=== PATIENT | male | born 1950 | race Caucasian/White ===

== ENCOUNTER 2017-06-07 10:24 | Inpatient (IN) | payer BC, MEDICARE, SELFPAY ==
[2017-06-07] VITALS (14 sets, daily range): BP systolic 149–211; BP diastolic 60–117; PULSE 69–96; RESP 16–20; TEMP 36.6–36.8; O2SAT 93–100; BMI 48.8; BMI 45.4
--- NOTE | 2017-06-07 11:08 | ED.DCSUM_ITS ---
- ER Visit Summary Date of Service: 06/07/17 Chief Complaint: Elevated potassium History of Present Illness: The patient is a 66 M with an abnormal blood test. He had routine blood testing and had a potassium of 6.5. He has no symptoms or complaints. He was here to recheck that test. He does have a history of chronic kidney disease and diabetes. Physical Examination: Afebrile and vital signs unremarkable. Nontoxic and in no acute distress. Heart regular. Lungs clear. Abdomen soft. Skin appears normal. Test Results: BMP pending. Emergency Department Course and Treatment: BMP showed a potassium of 6.0. BUN was 39 and creatinine was 3.42. The patient said that the 3.42 is near his baseline. White count normal. Urinalysis unremarkable except for protein and glucose. EKG showed sinus rhythm at a rate of 77. May be some mild peaked T waves, but nothing significant. Patient was treated with calcium, insulin, and dextrose. He remained stable. I contacted the hospitalist for further evaluation. Treatment Plan: As above Disposition: Admission Impression: 1. Hyperkalemia 2. Chronic kidney disease This note was generated with [employer]ation software. It may contain incorrect words, spelling, and punctuation that were not noted in review of the chart prior to signing ED Disposition - Plan for ED Patient: Chief Complaint: Abn Labs Referrals: [facility] Doctor,Out of [NON-STAFF] -
[2017-06-07 11:49] LABS: Anion Gap 4 (5-15); BUN 39 mg/dL (7-18); BUN/Creat Ratio 11.4 RATIO (10-20); Calcium,Total 8.5 mg/dL (8.5-10.1); Chloride 109 mmol/L (98-107); Creatinine, Serum 3.42 mg/dL (0.70-1.30); EST Glomerular Filtration Rate 19 mL/min (>60); Est Glom Filt Rate - Afr Amer 23 mL/min (>60); Estimated Creatinine Clearance 23.01 ml/min; Glucose 166 mg/dL (74-106); Sodium Level 140 mmol/L (136-145)
--- NOTE | 2017-06-07 11:56 | EKG12_ITS ---
Test Reason : ABNORMAL LABS Blood Pressure : / mmHG Vent. Rate : 077 BPM Atrial Rate : 077 BPM P-R Int : 206 ms QRS Dur : 090 ms QT Int : 368 ms P-R-T Axes : 064 034 014 degrees QTc Int : 416 ms Sinus rhythm with Premature atrial complexes Otherwise normal ECG Confirmed by FRANCO FELICIANO, ISI ([id number]), editorial specialist LATANYA LEE ([id number] on 06/08/2017 2:32:58 PM Referred By: DC Confirmed By:ISI GAMEZ MD
[2017-06-07] MEDS: 0.9% Normal Saline 1,000 ML 1000 ML IV (12:18)
[2017-06-07 12:22] LABS: Absolute Lymphocyte Count 1.49 X10^3/ul (0.83-4.51); Absolute Neutrophil Count 4.7 X10^3/uL (2.0-7.7); Basophil# 0.04 X10^3/uL; Basophil% 0.6 % (0-1); Eosinophil# 0.28 X10^3/uL; Hematocrit 43.1 % (40-54); Hemoglobin 14.2 g/dl (13.0-16.5); Lymphocyte # 1.49 X10^3/ul (4.0); Lymphocyte % 21.4 % (19-41); Mean Corp Hgb Conc 32.9 g/gl (32-36); Mean Corpuscular Hgb 28.9 pg (27.0-32.0); Mean Corpuscular Volume 87.8 fL (80-94); Monocyte# 0.44 X10^3/uL; Monocyte% 6.3 % (0-10); Neutrophil # 4.69 X10^3/uL (2.7-7.7); Neutrophil % 67.6 % (47-70); POSITIVE COUNT NO; POSITIVE DIFFERENTIAL NO; POSITIVE MORPHOLOGY NO; Platelet Count 208 K/mm3 (150-450); RBC Distribution Width CV 14.3 % (11.6-14.6); Red Blood Count 4.91 M/mm3 (4.6-6.2)
[2017-06-07 12:27] LABS: Bacteria 0 SEEN /hpf (None Seen); Mucous, Urine 0 SEEN /hpf (<or=2+); Red Blood Cells-Urine 0 SEEN /hpf (0-5); Squamous Epithelial Cells - UA 0 SEEN /hpf (0-5); White Blood Cells 0 SEEN /hpf (0-5)
[2017-06-07] MEDS: Dextrose 50%-Water 25 GM/50 ML DISP.SYRIN IV (12:41)
[2017-06-07] MEDS: Calcium Gluconate 1 GM/10 ML Vial IV (12:41)
[2017-06-07 12:42] LABS: Color, Urine Yellow (Yellow); Glucose, Dipstick 100 mg/dl (Normal); Ketone-Dipstick Negative (Negative); Leukocyte Esterase-Dipstick Negative /ul (Negative); Nitrite-Dipstick Negative (Negative); Occult Blood-Urine 10 /ul (Negative); Protein-Dipstick 500 mg/dl (Negative); Urine Bilirubin Dipstick Negative (Negative); Urine Clarity Clear (Clear); Urine Urobilinogen Normal (Normal)
--- NOTE | 2017-06-07 13:36 | PCM.HP.STD ---
Problem List (1) HTN (hypertension) Status: Chronic Qualifiers: Hypertension type: essential hypertension Qualified Code(s): I10 - Essential (primary) hypertension (2) Morbid obesity Status: Chronic (3) Diabetes mellitus, type II Status: Chronic Qualifiers: Diabetes mellitus care home insulin use: with marine oil terminal superintendent use Diabetes mellitus complication status: with unspecified complications Qualified Code(s): E11.8 - Type 2 diabetes mellitus with unspecified complications; Z79.4 - termite control representative (current) use of insulin (4) CKD (chronic kidney disease) Status: Chronic Qualifiers: Chronic kidney disease stage: unspecified stage Qualified Code(s): N18.9 - Chronic kidney disease, unspecified (5) Hyperkalemia Status: Acute History of Present Illness Date of Admission: 06/07/17 Chief Complaint: Abnormal Lab The patient is a 66 y/o M w/ PMHx: Morbid Obesity, CKD Unclear stage, Hypertension, Diabetes mellitus type II who presents to the [facility] ED on 06/07/17 per his pet resort concierge recommendation as routine BMP w/ noted K 6.5. He notes having had recent renal bx as his renal function has been increasing over the last 6 months- 1 year. He follows w/ [facility] [employer] in [place] where he lives, Dr. Mcdonnell. In the ED work-up included AF, HR 60-70, BP 160/91-->197/93, RR 18, 100% on RA, CBC unremarkable, BMP w/ K 6.0, Chl 109, BUN/Cr 39/3.42, glucose 166, UA w/ protein, glucose otherwise not marked appearing, EKG with mild peaked T-waves. In the ED patient administered Ca gluconate, Dextrose 25 mg IV x 1, insulin 5 u IV x 1, NS 1L. Past Medical History Past Medical History (Chronic Problems): Chronic Problems HTN (hypertension) (Chronic) Morbid obesity (Chronic) Diabetes mellitus, type II (Chronic) CKD (chronic kidney disease) (Chronic) Allergies Penicillins Allergy (Verified 06/07/17 10:28) Angioedema Tetanus Vaccines and Toxoid Allergy (Verified 06/07/17 10:28) Unknown Home Medications: Ambulatory Orders Medication Instructions Recorded Amlodipine [Norvasc] 10 mg PO DAILY 06/07/17 Chlorthalidone 25 mg PO DAILY 06/07/17 Insulin Degludec [Tresiba 66 unit SQ DAILY 06/07/17 Flextouch U-100] Propranolol HCl [Inderal (Beta 20 mg PO BID 06/07/17 Fatimah)] Valsartan [Diovan] 320 mg PO DAILY 06/07/17 hydrALAZINE [Apresoline] 10 mg PO BID 06/07/17 Surgical History: no surgical history Psychiatric History: No pertinent psych hx Lives: Spouse/ Significant Other Smoking Status: Former smoker - Patient notes quitting approximately 30 years prior. Tobacco Use: Non-smoker Alcohol: Rare Drugs: None - *Family History Maternal History Items: Diabetes, Hypertension Paternal History Items: Hypertension Review of Systems Constitutional: Denies: Chills, Fever, Weight Change HEENT: Denies: Head Aches, Sinus Congestion, Sinus Drainage Cardiovascular: Denies: Chest Pain, Palpitations Respiratory: Denies: Cough, Shortness of breath at rest, Sputum production Gastrointestinal: Denies: Abdominal Pain, Nausea, Vomiting Genitourinary: Denies: Dysuria Musculoskeletal: Denies: Joint Pain, Joint Tenderness Skin: Denies: Rash, Wounds Neurological: Denies: Numbness, Tingling, Focal weakness Psychiatric: Denies: Anxiety, Depression, Homicidal Ideations, Suicidal Ideations Hematologic/ Lymphatic: Denies: Easy Bruising, Easy Bleeding VTE Information - Inpt Only VTE Present on Admission: No VTE Mechan Device Prophylaxis: SCD's VTE Pharm Prophylaxis ordered?: Yes Patient Problems: Active and Suspected Problems Hyperkalemia (Acute) Subjective: Seated upright in the ED bed, NAD. Objective: Physical Examination: General: awake, alert, oriented x 3 and cooperative, seated upright in the ED bed in no apparent distress. Skin: normal color, turgor, no icterus, cyanosis except BL LE chronic venous stasis skin changes. HEENT: AT/NC, EOMI, PERRLA, MMM, no carotid bruits or JVD noted. Lungs: CTA bilaterally, moderate effort, mild decrease BL bases, no rales, ronchi or wheezing. Heart: Regular rate and rhythm; no gallop, rub audible. Abdomen: soft, morbidly obese, NTTP, ND, normal BS, no HSM; however, habitus makes examination difficult. Extremities: no cyanosis, clubbing, BL LE chronic venous stasis, 2-3+ pedal to distal browning edema. Neurological: patient awake, alert, oriented x 3; cognitive function intact; pupils equally reactive to light and accomodation; cranial nerves II-XII grossly normal, moving all 4 extremities, no focal deficits, strength mildly to moderately globally decreased secondary to habitus. Psychiatric: affect appears normal, no acute evidence of depressive or anxiety feelings. - Physical Exam Vital Signs Temp Pulse Resp BP Pulse Ox 97.9 F 77 17 197/93 H 99 06/07/17 10:25 06/07/17 13:02 06/07/17 13:02 06/07/17 13:02 06/07/17 13:02 Oxygen Delivery Method Room Air Weight: 360 lb Body Mass Index (BMI) 48.8 Laboratory Tests Past 24 Hrs 06/07/17 06/07/17 06/07/17 11:20 11:20 12:10 WBC 7.0 RBC 4.91 Hgb 14.2 Hct 43.1 MCV 87.8 MCH 28.9 MCHC 32.9 RDW 14.3 RDW Differential 46.0 H Plt Count 208 MPV 12.0 Immature Gran % (Auto) 0.100 Neut % (Auto) 67.6 Lymph % (Auto) 21.4 [place] % (Auto) 6.3 Eos % (Auto) 4.0 Baso % (Auto) 0.6 Absolute Neuts (auto) 4.7 Absolute Lymphs (auto) 1.49 Total Counted Not Reportable Sodium 140 Potassium 6.0 H* Chloride 109 H Carbon Dioxide 27.0 Anion Gap 4 L BUN 39 H Creatinine 3.42 H Estim Creat Clear Calc 23.01 Est GFR (MDRD) Af Amer 23 L Est GFR (MDRD) Non-Af 19 L BUN/Creatinine Ratio 11.4 Glucose 166 H Calcium 8.5 Urine Color Yellow Urine Clarity Clear Urine pH 7.0 Ur Specific [place] 1.010 Urine Protein 500 H Urine Glucose (UA) 100 H Urine Ketones Negative Urine Occult Blood 10 H Urine Nitrite Negative Urine Bilirubin Negative Urine Urobilinogen Normal Ur Leukocyte Esterase Negative Urine RBC 0 SEEN Urine WBC 0 SEEN Ur Squamous Epith Cells 0 SEEN Urine Bacteria 0 SEEN Urine Mucus 0 SEEN Assessment/Plan Active and Suspected Problems Hyperkalemia (Acute) The patient is a 66 y/o M w/ PMHx: Morbid Obesity, CKD Unclear stage, Hypertension, Diabetes mellitus type II who presents to the [facility] ED on 06/07/17 per his pet resort concierge recommendation as routine BMP w/ noted K 6.5. (1) Hyperkalemia: BMP w/ K 6.0, BUN/Cr 39/3.42, glucose 166, EKG with mild peaked T-waves. In the ED patient administered Ca gluconate, Dextrose 25 mg IV x 1, insulin 5 u IV x 1, NS 1L. Will admit to telemetry, maintain on NS IVFs, repeat BMP given recent interventions and re-treat as needed, additionally will administer kayexelate as note administered in the ED. Trend BMPs. (2) Chronic Kidney Disease Stage Unclear, Suspect III-IV: Admission BUN/Cr 39/3.42, baseline renal function 3.4 baseline per patient; however, function has been steadily increasing over the last 6 months-1 year. Renal Bx performed recently, no results yet. He follows w/ [employer] Ex[employer] Emissions in [place]. As noted, trending BMP w/ hyperkalemia. (3) Hypertension: Markedly elevated in the ED. Continue home regimen including norvasc, chlorthalidone, propranolol, holding valsartan given hyperkalemia with dosing now as notes takes daily medication in the evening and notably elevated BPs in the ED, PRN hydralazine. (4) Diabetes mellitus type II: Hold oral home regimen, continue home insulin regimen, ADA diet, accu checks w/ ISS, HgBA1c pending. (5) Morbid Obesity: Weight loss and lifestyle changes encouraged, nutrition consulted. (6) Suspected ROMI/High Risk: Recommend outpatient sleep study. (7) Chronic Venous Stasis: BL LE chronic venous stasis skin changes, apply GARO wraps and SCDs. (8) DVT Prophylaxis: SCDs, heparin. Code Visit Inpatient E&M: 55649 Init Hosp L3
--- NOTE | 2017-06-07 13:42 | HP.PCM_ITS ---
Problem List (1) HTN (hypertension) Status: Chronic Qualifiers: Hypertension type: essential hypertension Qualified Code(s): I10 - Essential (primary) hypertension (2) Morbid obesity Status: Chronic (3) Diabetes mellitus, type II Status: Chronic Qualifiers: Diabetes mellitus jail insulin use: with buttermaker continuous churn use Diabetes mellitus complication status: with unspecified complications Qualified Code(s) : E11.8 - Type 2 diabetes mellitus with unspecified complications; Z79.4 - intermediate manager (current) use of insulin (4) CKD (chronic kidney disease) Status: Chronic Qualifiers: Chronic kidney disease stage: unspecified stage Qualified Code(s): N18.9 - Chronic kidney disease, unspecified (5) Hyperkalemia Status: Acute History of Present Illness Date of Admission: 06/07/17 Chief Complaint: Abnormal Lab The patient is a 66 y/o M w/ PMHx: Morbid Obesity, CKD Unclear stage, Hypertension, Diabetes mellitus type II who presents to the [facility] ED on 06/07/17 per his aquaculturist recommendation as routine BMP w/ noted K 6.5. He notes having had recent renal bx as his renal function has been increasing over the last 6 months- 1 year. He follows w/ Business Administration Professor in [place] where he lives, Dr. Mcdonnell. In the ED work-up included AF, HR 60-70, BP 160/91-->197/93, RR 18, 100% on RA, CBC unremarkable, BMP w/ K 6.0, Chl 109, BUN/Cr 39/3.42, glucose 166 , UA w/ protein, glucose otherwise not marked appearing, EKG with mild peaked T- waves. In the ED patient administered Ca gluconate, Dextrose 25 mg IV x 1, insulin 5 u IV x 1, NS 1L. Past Medical History Past Medical History (Chronic Problems): Chronic Problems HTN (hypertension) (Chronic) Morbid obesity (Chronic) Diabetes mellitus, type II (Chronic) CKD (chronic kidney disease) (Chronic) Allergies Penicillins Allergy (Verified 06/07/17 10:28) Angioedema Tetanus Vaccines and Toxoid Allergy (Verified 06/07/17 10:28) Unknown Home Medications: Ambulatory Orders Medication Instructions Recorded Amlodipine [Norvasc] 10 mg PO DAILY 06/07/17 Chlorthalidone 25 mg PO DAILY 06/07/17 Insulin Degludec [Tresiba 66 unit SQ DAILY 06/07/17 Flextouch U-100] Propranolol HCl [Inderal (Beta 20 mg PO BID 06/07/17 Fatimah)] Valsartan [Diovan] 320 mg PO DAILY 06/07/17 hydrALAZINE [Apresoline] 10 mg PO BID 06/07/17 Surgical History: no surgical history Psychiatric History: No pertinent psych hx Lives: Spouse/ Significant Other Smoking Status: Former smoker - Patient notes quitting approximately 30 years prior. Tobacco Use: Non-smoker Alcohol: Rare Drugs: None - *Family History Maternal History Items: Diabetes, Hypertension Paternal History Items: Hypertension Review of Systems Constitutional: Denies: Chills, Fever, Weight Change HEENT: Denies: Head Aches, Sinus Congestion, Sinus Drainage Cardiovascular: Denies: Chest Pain, Palpitations Respiratory: Denies: Cough, Shortness of breath at rest, Sputum production Gastrointestinal: Denies: Abdominal Pain, Nausea, Vomiting Genitourinary: Denies: Dysuria Musculoskeletal: Denies: Joint Pain, Joint Tenderness Skin: Denies: Rash, Wounds Neurological: Denies: Numbness, Tingling, Focal weakness Psychiatric: Denies: Anxiety, Depression, Homicidal Ideations, Suicidal Ideations Hematologic/ Lymphatic: Denies: Easy Bruising, Easy Bleeding VTE Information - Inpt Only VTE Present on Admission: No VTE Mechan Device Prophylaxis: SCD's VTE Pharm Prophylaxis ordered?: Yes Patient Problems: Active and Suspected Problems Hyperkalemia (Acute) Subjective: Seated upright in the ED bed, NAD. Objective: Physical Examination: General: awake, alert, oriented x 3 and cooperative, seated upright in the ED bed in no apparent distress. Skin: normal color, turgor, no icterus, cyanosis except BL LE chronic venous stasis skin changes. HEENT: AT/NC, EOMI, PERRLA, MMM, no carotid bruits or JVD noted. Lungs: CTA bilaterally, moderate effort, mild decrease BL bases, no rales, ronchi or wheezing. Heart: Regular rate and rhythm; no gallop, rub audible. Abdomen: soft, morbidly obese, NTTP, ND, normal BS, no HSM; however, habitus makes examination difficult. Extremities: no cyanosis, clubbing, BL LE chronic venous stasis, 2-3+ pedal to distal browning edema. Neurological: patient awake, alert, oriented x 3; cognitive function intact; pupils equally reactive to light and accomodation; cranial nerves II-XII grossly normal, moving all 4 extremities, no focal deficits, strength mildly to moderately globally decreased secondary to habitus. Psychiatric: affect appears normal, no acute evidence of depressive or anxiety feelings. - Physical Exam Vital Signs Temp Pulse Resp BP Pulse Ox 97.9 F 77 17 197/93 H 99 06/07/17 10:25 06/07/17 13:02 06/07/17 13:02 06/07/17 13:02 06/07/17 13:02 Oxygen Delivery Method Room Air Weight: 360 lb Body Mass Index (BMI) 48.8 Laboratory Tests Past 24 Hrs 06/07/17 06/07/17 06/07/17 11:20 11:20 12:10 WBC 7.0 RBC 4.91 Hgb 14.2 Hct 43.1 MCV 87.8 MCH 28.9 MCHC 32.9 RDW 14.3 RDW Differential 46.0 H Plt Count 208 MPV 12.0 Immature Gran % (Auto) 0.100 Neut % (Auto) 67.6 Lymph % (Auto) 21.4 [place] % (Auto) 6.3 Eos % (Auto) 4.0 Baso % (Auto) 0.6 Absolute Neuts (auto) 4.7 Absolute Lymphs (auto) 1.49 Total Counted Not Reportable Sodium 140 Potassium 6.0 H* Chloride 109 H Carbon Dioxide 27.0 Anion Gap 4 L BUN 39 H Creatinine 3.42 H Estim Creat Clear Calc 23.01 Est GFR (MDRD) Af Amer 23 L Est GFR (MDRD) Non-Af 19 L BUN/Creatinine Ratio 11.4 Glucose 166 H Calcium 8.5 Urine Color Yellow Urine Clarity Clear Urine pH 7.0 Ur Specific [place] 1.010 Urine Protein 500 H Urine Glucose (UA) 100 H Urine Ketones Negative Urine Occult Blood 10 H Urine Nitrite Negative Urine Bilirubin Negative Urine Urobilinogen Normal Ur Leukocyte Esterase Negative Urine RBC 0 SEEN Urine WBC 0 SEEN Ur Squamous Epith Cells 0 SEEN Urine Bacteria 0 SEEN Urine Mucus 0 SEEN Assessment/Plan Active and Suspected Problems Hyperkalemia (Acute) The patient is a 66 y/o M w/ PMHx: Morbid Obesity, CKD Unclear stage, Hypertension, Diabetes mellitus type II who presents to the [facility] ED on 06/07/17 per his aquaculturist recommendation as routine BMP w/ noted K 6.5. (1) Hyperkalemia: BMP w/ K 6.0, BUN/Cr 39/3.42, glucose 166, EKG with mild peaked T-waves. In the ED patient administered Ca gluconate, Dextrose 25 mg IV x 1, insulin 5 u IV x 1, NS 1L. Will admit to telemetry, maintain on NS IVFs, repeat BMP given recent interventions and re-treat as needed, additionally will administer kayexelate as note administered in the ED. Trend BMPs. (2) Chronic Kidney Disease Stage Unclear, Suspect III-IV: Admission BUN/Cr 39/ 3.42, baseline renal function 3.4 baseline per patient; however, function has been steadily increasing over the last 6 months-1 year. Renal Bx performed recently, no results yet. He follows w/ Business Administration Professor in [place]. As noted, trending BMP w/ hyperkalemia. (3) Hypertension: Markedly elevated in the ED. Continue home regimen including norvasc, chlorthalidone, propranolol, holding valsartan given hyperkalemia with dosing now as notes takes daily medication in the evening and notably elevated BPs in the ED, PRN hydralazine. (4) Diabetes mellitus type II: Hold oral home regimen, continue home insulin regimen, ADA diet, accu checks w/ ISS, HgBA1c pending. (5) Morbid Obesity: Weight loss and lifestyle changes encouraged, nutrition consulted. (6) Suspected ROMI/High Risk: Recommend outpatient sleep study. (7) Chronic Venous Stasis: BL LE chronic venous stasis skin changes, apply GARO wraps and SCDs. (8) DVT Prophylaxis: SCDs, heparin. Code Visit Inpatient E&M: 47079 Init Hosp L3
[2017-06-07] MEDS: Sodium Polystyrene Sulfonate 15 GM/60 ML UDC 30 GM PO (15:44)
[2017-06-07] MEDS: amLODIPine 10 MG Tablet PO (15:45)
[2017-06-07] MEDS: 0.9% Normal Saline 1,000 ML 100 ML IV (15:45)
[2017-06-07] MEDS: hydrALAZINE 20 MG/ML Vial 10 MG IV (16:03)
[2017-06-07 16:06] LABS: Bedside Glucose 62 mg/dL (70-110)
[2017-06-07 16:45] LABS: Bedside Glucose 79 mg/dL (70-110)
[2017-06-07 16:46] LABS: Magnesium 2.1 mg/dL (1.6-2.6)
[2017-06-07 16:52] LABS: Anion Gap 7 (5-15); BUN 37 mg/dL (7-18); BUN/Creat Ratio 11.6 RATIO (10-20); Chloride 113 mmol/L (98-107); EST Glomerular Filtration Rate 21 mL/min (>60); Est Glom Filt Rate - Afr Amer 25 mL/min (>60); Estimated Creatinine Clearance 24.59 ml/min; Glucose 44 mg/dL (74-106); Potassium 4.6 mmol/L (3.5-5.1); Sodium Level 144 mmol/L (136-145)
[2017-06-07 19:51] LABS: Anion Gap 10 (5-15); BUN 35 mg/dL (7-18); Calcium,Total 8.4 mg/dL (8.5-10.1); Chloride 111 mmol/L (98-107); Creatinine, Serum 3.19 mg/dL (0.70-1.30); EST Glomerular Filtration Rate 21 mL/min (>60); Est Glom Filt Rate - Afr Amer 25 mL/min (>60); Estimated Creatinine Clearance 24.66 ml/min; Glucose 185 mg/dL (74-106); Potassium 4.9 mmol/L (3.5-5.1); Sodium Level 142 mmol/L (136-145)
[2017-06-07] MEDS: hydrALAZINE 10 MG Tablet PO (22:07)
[2017-06-07] MEDS: Propranolol 10 MG Tablet 20 MG PO (22:08)
[2017-06-07] MEDS: Heparin Injection 5,000 UNITS/ML Syringe 5000 UNITS SC (22:08)
[2017-06-07 22:26] LABS: Bedside Glucose 217 mg/dL (70-110)
[2017-06-07 23:17] LABS: Anion Gap 8 (5-15); BUN 37 mg/dL (7-18); BUN/Creat Ratio 11.4 RATIO (10-20); Chloride 112 mmol/L (98-107); Creatinine, Serum 3.25 mg/dL (0.70-1.30); EST Glomerular Filtration Rate 20 mL/min (>60); Est Glom Filt Rate - Afr Amer 25 mL/min (>60); Estimated Creatinine Clearance 24.21 ml/min; Glucose 232 mg/dL (74-106); Potassium 4.8 mmol/L (3.5-5.1); Sodium Level 142 mmol/L (136-145)
[2017-06-08] VITALS (10 sets, daily range): BP systolic 156–196; BP diastolic 67–82; PULSE 82–95; RESP 18; TEMP 36.9–37; O2SAT 95–96
[2017-06-08] MEDS: 0.9% Normal Saline 1,000 ML 100 ML IV (01:27)
[2017-06-08 06:29] LABS: Hemoglobin 12.9 g/dl (13.0-16.5); Mean Corp Hgb Conc 33.1 g/gl (32-36); Mean Corpuscular Hgb 28.7 pg (27.0-32.0); Mean Corpuscular Volume 86.9 fL (80-94); Mean Platelet Vol. 11.5 fl (6.2-12.0); Platelet Count 180 K/mm3 (150-450); RBC Distribution Width CV 14.3 % (11.6-14.6); RBC Distribution Width SD 45.1 fl (35.1-43.9); Red Blood Count 4.49 M/mm3 (4.6-6.2)
[2017-06-08 06:32] LABS: Scan Indicated on CBC? Y/N NO
[2017-06-08 06:50] LABS: Anion Gap 7 (5-15); BUN 34 mg/dL (7-18); BUN/Creat Ratio 10.5 RATIO (10-20); Calcium,Total 8.4 mg/dL (8.5-10.1); Chloride 112 mmol/L (98-107); Creatinine, Serum 3.24 mg/dL (0.70-1.30); EST Glomerular Filtration Rate 20 mL/min (>60); Est Glom Filt Rate - Afr Amer 25 mL/min (>60); Estimated Creatinine Clearance 24.28 ml/min; Glucose 96 mg/dL (74-106); Potassium 4.6 mmol/L (3.5-5.1); Sodium Level 143 mmol/L (136-145)
[2017-06-08 07:01] LABS: Bedside Glucose 82 mg/dL (70-110)
[2017-06-08 07:49] LABS: Hemoglobin A1c 8.1 % (4.2-6.3)
[2017-06-08] MEDS: Propranolol 10 MG Tablet 20 MG PO (09:57)
[2017-06-08] MEDS: amLODIPine 10 MG Tablet PO (09:57)
[2017-06-08] MEDS: Chlorthalidone 50 MG Tablet 25 MG PO (09:58)
[2017-06-08] MEDS: hydrALAZINE 10 MG Tablet PO ×2 (09:59→13:11)
[2017-06-08] MEDS: Heparin Injection 5,000 UNITS/ML Syringe 5000 UNITS SC (10:00)
--- NOTE | 2017-06-08 10:06 | CASEMGMT ---
CHART REVIEW: ROLLY Strata: 1 Adm Dx: Hyperkalemia Insurance: [employer] Status: IP Per physician documentation, the patient is a 66 y/o M w/ PMHx: Morbid Obesity, CKD Unclear stage, Hypertension, Diabetes mellitus type II who presents to the [facility] ED on 06/07/17 per his terrazzo tile maker recommendation as routine BMP w/ noted K 6.5. Pt notes having had recent renal bx as his renal function has been increasing over the last 6 months- 1 year. He follows w/ Residential Driver in [place] where he lives, Dr. Mcdonnell. In the ED work-up included AF, HR 60-70, BP 160/91-->197/93, RR 18, 100% on RA, CBC unremarkable, BMP w/ K 6.0, Chl 109, BUN/Cr 39/3.42, glucose 166, UA w/ protein, glucose otherwise not marked appearing, EKG with mild peaked T-waves. In the ED patient administered Ca gluconate, Dextrose 25 mg IV x 1, insulin 5 u IV x 1, NS 1L. Transition Planning/Care Coordination: Patient is independent, works outside the home, drives, is . Patient is established with Dr Reed, nephrology in [place], and Dr. Herb White for primary care. The patient does not have any mental health dx and no new chronic disease diagnosis; patient does have CKD with baseline creat in the 3 range. Per nursing, patient's spouse involved in care and understanding disease process and management. Disposition Plan: Home with support of spouse and with follow-up instructions. ROMAINE LópezN, RN-BC, CCM
[2017-06-08 11:41] LABS: Bedside Glucose 148 mg/dL (70-110)
--- NOTE | 2017-06-08 12:50 | DCINST_ITS ---
- Discharge Diagnoses Current Active Problems: Current Active and Chronic Problems HTN (hypertension) (Chronic) Morbid obesity (Chronic) Diabetes mellitus, type II (Chronic) CKD (chronic kidney disease) (Chronic) Hyperkalemia (Acute) You will use the following diet at home:: Renal (restricted protein/sodium) Discharge Activity: Return to Normal Activity Call your doctor if you observe: Shortness of breath, Dizziness, Fainting spells , Chest pain, Increased palpitations (irregular heartbeat) Allergies/Adverse Reactions: Allergies Penicillins Allergy (Verified 06/07/17 14:57) Unknown Tetanus Vaccines and Toxoid Allergy (Verified 06/07/17 10:28) Unknown glyburide Adverse Reaction (Verified 06/07/17 14:56) just doesn't work metformin Adverse Reaction (Verified 06/07/17 14:56) Just doesn't work Medications to take at Discharge Amlodipine [Norvasc] 10 mg PO DAILY 06/07/17 Chlorthalidone 25 mg PO DAILY 06/07/17 Insulin Degludec [Tresiba Flextouch U-100] 66 unit SQ DAILY 06/07/17 Propranolol HCl [Inderal (Beta Fatimah)] 20 mg PO BID 06/07/17 Valsartan [Diovan] 320 mg PO QHS 06/07/17 hydrALAZINE [Apresoline] 10 mg PO BID 06/07/17 Primary Care Physician: Lilly Zuleta,Out of [NON-STAFF] - Please follow up with your Primary Care Physician in: 1 Week Please Follow Up With: Dr. Esquivel - Nephrology When: As scheduled, 06/13/17 Proposed Discharge Date: 06/08/17
--- NOTE | 2017-06-08 12:51 | PCM.DC.SUM ---
<Sushma eSrna - Last Filed: 06/08/17 13:54> Discharge Date and Diagnosis Date of Admission: 06/07/17 Date of Discharge: 06/08/17 - Primary Discharge Diagnosis Active and Suspected Problems 1. Acute hyperkalemia 2. Chronic kidney disease, suspected stage IV 3. Hypertension 4. Type 2 diabetes mellitus 5. Morbid obesity - Secondary Discharge Diagnosis Chronic Problems HTN (hypertension) (Chronic) Morbid obesity (Chronic) Diabetes mellitus, type II (Chronic) CKD (chronic kidney disease) (Chronic) Hospital Course and Treatment Operations: None Procedures: None Summary of Care Provided: The patient is a 66 year old M admitted 05/30/2017 due to elevated potassium which was found during outpatient routine lab work. Patient has been undergoing workup with clamper and Dr. Alvin Hoover. He states he has had a recent renal biopsy due to worsening renal function over the past 6 months to 1 year. Unknown of patient's baseline kidney function. Appears to have stage IV chronic kidney disease. Potassium on admission was 6.0. Improved to 4.6 at discharge. Patient received calcium gluconate and Kayexalate. Patient has hypertension and is on a multidrug regimen. He states his blood pressure has been difficult to control. Blood pressure labile during admission. This will need closely monitored as outpatient. Patient's hydralazine was increased to 25 mg 3 times daily. Patient's other chronic medical history includes hypertension, type 2 diabetes mellitus, morbid obesity, chronic venous stasis. Recommend outpatient sleep study as ordered by primary care physician. Patient has follow-up appointments with nephrology this coming 06/13/2017 in which he states he is to repeat lab work. Patient seen and examined prior to discharge. Heart rate regular rate and rhythm. Lungs clear, diminished. Neuro grossly intact. Abdomen soft, nontender, obese. Vitals stable. Patient stable for discharge home with further close monitoring by primary care and nephrology as outpatient. This patient was seen by MAREN Olvera under the supervision of Dr. White. Discharge Diet: Low fat/ Low Cholesterol, Renal Diet Discharge Activity: Return to Normal Activity Call your doctor if you observe: Shortness of breath, Dizziness, Fainting spells, Chest pain, Increased palpitations (irregular heartbeat) Home Medications: Medications to take at Discharge Amlodipine [Norvasc] 10 mg PO DAILY 06/07/17 Chlorthalidone 25 mg PO DAILY 06/07/17 Insulin Degludec [Tresiba Flextouch U-100] 66 unit SQ DAILY 06/07/17 Propranolol HCl [Inderal (Beta Fatimah)] 20 mg PO BID 06/07/17 Valsartan [Diovan] 320 mg PO QHS 06/07/17 hydrALAZINE [Apresoline] 25 mg PO TID #90 tab 06/08/17 Following Prescrptions Were Given to Patient: hydrALAZINE [Apresoline] 25 mg PO TID #90 tab Primary Care Physician: Lilly Doctor,Out of [NON-STAFF] - Please follow up with your Primary Care Physician in: 1 Week Please Follow Up With: Dr. Esquivel - Nephrology When: As scheduled, 06/13/17 Disposition: Home Minutes spent on discharge:: 35 Patient Condition:: Stable Medical Necessity - Tobacco Use Smoking Status: Former smoker Tobacco Use: Non-smoker Meaningful Use Info Meaningful Use Diagnoses (Choose all that apply): None applicable <Nba White - Last Filed: 06/08/17 16:26> Discharge Date and Diagnosis - Secondary Discharge Diagnosis Chronic Problems HTN (hypertension) (Chronic) Morbid obesity (Chronic) Diabetes mellitus, type II (Chronic) CKD (chronic kidney disease) (Chronic) Hospital Course and Treatment Summary of Care Provided: This patient was seen in conjunction with Sushma NAIDU. I have independently interviewed and examined the patient and reviewed pertinent history, examination findings, laboratory and plan of management. I have reviewed the note and agree with the documented findings with the few additional points. In brief, patient is admitted for acute hyperkalemia from outpatient lab work. Patient had established clamper and had biopsy recently for CKD stage IV with proteinuria. UA is significant of proteinuria. Hyperkalemia resolved. Patient also has uncontrolled hypertension and hydralazine p.o. was increased to 25 mg 3 times daily. I have discussed my assessment with Sushma NAIDU and orders have been reviewed. Discharge meds reconciliation done. Discharge follow-up instructions completed. Total time spent, exact 32 minutes on discharge meds reconciliation, examination, review of imaging and blood test and discussion with the patient on follow-up instructions. [] Code Visit Inpatient E&M: 77903 Disch Hosp
--- NOTE | 2017-06-08 13:05 | DS.PCM_ITS ---
<Sushma Serna - Last Filed: 06/08/17 13:54> Discharge Date and Diagnosis Date of Admission: 06/07/17 Date of Discharge: 06/08/17 - Primary Discharge Diagnosis Active and Suspected Problems 1. Acute hyperkalemia 2. Chronic kidney disease, suspected stage IV 3. Hypertension 4. Type 2 diabetes mellitus 5. Morbid obesity - Secondary Discharge Diagnosis Chronic Problems HTN (hypertension) (Chronic) Morbid obesity (Chronic) Diabetes mellitus, type II (Chronic) CKD (chronic kidney disease) (Chronic) Hospital Course and Treatment Operations: None Procedures: None Summary of Care Provided: The patient is a 66 year old M admitted 05/30/2017 due to elevated potassium which was found during outpatient routine lab work. Patient has been undergoing workup with collaborative physician and Dr. Alvin Hoover. He states he has had a recent renal biopsy due to worsening renal function over the past 6 months to 1 year. Unknown of patient's baseline kidney function. Appears to have stage IV chronic kidney disease. Potassium on admission was 6.0. Improved to 4.6 at discharge. Patient received calcium gluconate and Kayexalate. Patient has hypertension and is on a multidrug regimen. He states his blood pressure has been difficult to control. Blood pressure labile during admission. This will need closely monitored as outpatient. Patient's hydralazine was increased to 25 mg 3 times daily. Patient's other chronic medical history includes hypertension, type 2 diabetes mellitus, morbid obesity , chronic venous stasis. Recommend outpatient sleep study as ordered by primary care physician. Patient has follow-up appointments with nephrology this coming 06/13/2017 in which he states he is to repeat lab work. Patient seen and examined prior to discharge. Heart rate regular rate and rhythm. Lungs clear, diminished. Neuro grossly intact. Abdomen soft, nontender, obese. Vitals stable. Patient stable for discharge home with further close monitoring by primary care and nephrology as outpatient. This patient was seen by MAREN Olvera under the supervision of Dr. White. Discharge Diet: Low fat/ Low Cholesterol, Renal Diet Discharge Activity: Return to Normal Activity Call your doctor if you observe: Shortness of breath, Dizziness, Fainting spells , Chest pain, Increased palpitations (irregular heartbeat) Home Medications: Medications to take at Discharge Amlodipine [Norvasc] 10 mg PO DAILY 06/07/17 Chlorthalidone 25 mg PO DAILY 06/07/17 Insulin Degludec [Tresiba Flextouch U-100] 66 unit SQ DAILY 06/07/17 Propranolol HCl [Inderal (Beta Fatimah)] 20 mg PO BID 06/07/17 Valsartan [Diovan] 320 mg PO QHS 06/07/17 hydrALAZINE [Apresoline] 25 mg PO TID #90 tab 06/08/17 Following Prescrptions Were Given to Patient: hydrALAZINE [Apresoline] 25 mg PO TID #90 tab Primary Care Physician: Lilly Doctor,Out of [NON-STAFF] - Please follow up with your Primary Care Physician in: 1 Week Please Follow Up With: Dr. Esquivel - Nephrology When: As scheduled, 06/13/17 Disposition: Home Minutes spent on discharge:: 35 Patient Condition:: Stable Medical Necessity - Tobacco Use Smoking Status: Former smoker Tobacco Use: Non-smoker Meaningful Use Info Meaningful Use Diagnoses (Choose all that apply): None applicable <Nba White - Last Filed: 06/08/17 16:26> Discharge Date and Diagnosis - Secondary Discharge Diagnosis Chronic Problems HTN (hypertension) (Chronic) Morbid obesity (Chronic) Diabetes mellitus, type II (Chronic) CKD (chronic kidney disease) (Chronic) Hospital Course and Treatment Summary of Care Provided: This patient was seen in conjunction with Sushma NAIDU. I have independently interviewed and examined the patient and reviewed pertinent history, examination findings, laboratory and plan of management. I have reviewed the note and agree with the documented findings with the few additional points. In brief, patient is admitted for acute hyperkalemia from outpatient lab work. Patient had established collaborative physician and had biopsy recently for CKD stage IV with proteinuria. UA is significant of proteinuria. Hyperkalemia resolved. Patient also has uncontrolled hypertension and hydralazine p.o. was increased to 25 mg 3 times daily. I have discussed my assessment with Sushma NAIDU and orders have been reviewed. Discharge meds reconciliation done. Discharge follow-up instructions completed. Total time spent, exact 32 minutes on discharge meds reconciliation, examination , review of imaging and blood test and discussion with the patient on follow-up instructions. [] Code Visit Inpatient E&M: [id number] Disch Hosp
== END 2017-06-08 14:15 | disposition home health service (06) | DRG 641 ==
LOC: ED 11:09 → MS3 14:17 → PCU 15:25
PROVIDERS: Internal Medicine; Admitting Provider Family Medicine; Emergency Provider Emergency Medicine; Family Provider Internal Medicine; PCP Internal Medicine; Visit Provider Internal Medicine
DX: E87.5 Hyperkalemia (principal); E11.22 Type 2 diabetes mellitus with diabetic chronic kidney disease; N18.4 Chronic kidney disease, stage 4 (severe); Z68.42 Body mass index [BMI] 45.0-49.9, adult; I12.9 Hypertensive chronic kidney disease with stage 1 through stage 4 chronic kidney disease, or unspecified chronic kidney disease; Z87.891 Personal history of nicotine dependence; Z79.4 Long term (current) use of insulin; E66.01 Morbid (severe) obesity due to excess calories; Z79.899 Other long term (current) drug therapy; I87.2 Venous insufficiency (chronic) (peripheral)
CPT/HCPCS: 36415; 80048; 81001; 82962; 83036; 83735; 85025; 85027; 93005; 97802; 99284; J7030; A4216; J0610